=== PATIENT | male | born 1995 | race African-American/Black ===

== ENCOUNTER 2018-05-21 12:57 | Emergency (ER) | payer SELFPAY ==
[~2018-05-21] VITALS: Ht 172.7 cm; Wt 61.2 kg
[2018-05-21 13:20] VITALS: BP 126/71
[2018-05-21] MEDS ORDERED: LIDOCAINE WITH 8.4% SOD BICARB 3 ML DISP.SYRIN. INJ ONE (13:30)
[2018-05-21] MEDS ORDERED: DIPHTH,PERTUSS(ACELL),TET TOX 0.5 ML DISP.SYRIN. VAX IM ONE (13:30)
--- NOTE | 2018-05-21 13:38 | PHYS DOC ---
Past Medical History Past Medical History: No Pertinent History Past Surgical History: No Surgical History Alcohol Use: Occasionally Drug Use: None Adult General Chief Complaint Chief Complaint: LACERATION/AVULSION HPI HPI Patient is a 23 year old male presents to the ED complaining of finger laceration x 2 hours ago. States that he was carrying a piece of glass and it broke. Describes the pain as sharp. Rates the pain as 3 out of 10. States he cut his right fourth finger. Denies decreased range of motion, headache, paresthesias, fever, nausea/vomiting or dizziness. Review of Systems Review of Systems Constitutional: Denies fever or chills [] Respiratory: Denies cough or shortness of breath [] Cardiovascular: No additional information not addressed in HPI [] GI: Denies abdominal pain, nausea, vomiting, bloody stools or diarrhea [] : Denies dysuria or hematuria [] Musculoskeletal: Complains of finger laceration. Denies back pain or joint pain [] Integument: Denies rash or skin lesions [] Neurologic: Denies headache, focal weakness or sensory changes [] All other systems were reviewed and found to be within normal limits, except as documented in this note. Current Medications Current Medications Current Medications Medications (Trade) Dose Ordered Sig/Gabby Start Time Stop Time Status Last Admin Dose Admin Diphtheria/ Tetanus/Acell Pertussis (Boostrix) 0.5 ml ONCE ONCE 05/21/18 13:30 05/21/18 13:31 DC 05/21/18 13:29 0.5 ML Lidocaine/Sodium Bicarbonate (Buffered Lidocaine 1%) 3 ml 1X ONCE 05/21/18 13:30 05/21/18 13:31 DC 05/21/18 13:28 3 ML Allergies Allergies Allergies Coded Allergies Type Severity Reaction Last Updated Verified No Known Drug Allergies 05/21/18 No Physical Exam Physical Exam Constitutional: Well developed, well nourished, no acute distress, non-toxic appearance. [] HENT: Normocephalic, atraumatic Neck: Normal range of motion, no tenderness, supple, no stridor. [] Skin: Warm, dry, no erythema, no rash. [] Back: No tenderness, no CVA tenderness. [] Extremities: 1 cm right 4th finger lateral laceration. No tendon laceration. No bony tenderness, no cyanosis, no clubbing, ROM intact, no edema. [] Neurologic: Alert and oriented X 3, normal motor function, normal sensory function, no focal deficits noted. [] Psychologic: Affect normal, judgement normal, mood normal. [] Current Patient Data Vital Signs Vital Signs Date Time Temp Pulse Resp B/P (MAP) Pulse Ox O2 Delivery O2 Flow Rate FiO2 05/21/18 13:20 99.1 67 16 126/71 (89) 100 Room Air 99.1 EKG EKG [] Radiology/Procedures Radiology/Procedures [] Course & Med Decision Making Course & Med Decision Making Pertinent Labs and Imaging studies reviewed. (See chart for details) []No bony tenderness. No x-ray warranted. Laceration repaired. No complications. Discussed symptomatic treatment and wound care. Tetanus updated. Discussed follow-up for wound reevaluation in 3 days. Provided contact information/education. Discussed reasons to return to the ED. Patient understands and agrees with plan. Dragon Disclaimer Dragon Disclaimer This electronic medical record was generated, in whole or in part, using a voice recognition dictation system. Departure Departure Impression: Primary Impression: Finger laceration Disposition: 01 HOME, SELF-CARE Condition: IMPROVED Referrals: NO PCP (PCP) KOLE TORO MD Patient Instructions: Fingertip Laceration Laceration/Wound Repair Laceration/Wound Repair : Wound Location: upper extremity Wound's Depth, Shape: superficial Wound Length (cm): 1 Wound Explored: clean Irrigated w/ Saline (ccs): 500 Betadine Prep?: Yes Anesthesia: 1% Lidocaine Volume Anesthetic (ccs): 3 Wound Debrided: minimal Wound Repaired With: sutures Suture Size/Type: 4:0, nylon Number of Sutures: 3 Progress Well tolerated. No complications. BOOKER ARTHUR May 21, 2018 13:38
== END 2018-05-21 14:05 | disposition home or self-care (01) ==
LOC: ER 12:57
DX: S61.214A Laceration without foreign body of right ring finger without damage to nail, initial encounter (principal); W25.XXXA Contact with sharp glass, initial encounter; Y93.89 Activity, other specified; Y92.89 Other specified places as the place of occurrence of the external cause; Y99.8 Other external cause status
CPT/HCPCS: 12001; 90471; 90715; 99283

== ENCOUNTER 2018-05-26 15:05 | Emergency (ER) | payer SELFPAY ==
[~2018-05-26] VITALS: Ht 172.7 cm; Wt 61.2 kg
--- NOTE | 2018-05-26 15:50 | PHYS DOC ---
Past Medical History Past Medical History: No Pertinent History Past Surgical History: No Surgical History Alcohol Use: Occasionally Drug Use: None Adult General Chief Complaint Chief Complaint: SUTURE/STAPLE REMOVAL [facility] Patient is a 23 year old male who presents with a need for suture removal. The patient states that he just had the sutures placed 4 days ago. He states that the finger is boom tender but has been healing well. Review of Systems Review of Systems Constitutional: Denies fever or chills [] Respiratory: Denies cough or shortness of breath [] Cardiovascular: No additional information not addressed in HPI [] Musculoskeletal: Denies back pain or joint pain [] Integument: See history of present illness Neurologic: Denies headache, focal weakness or sensory changes [] Endocrine: Denies polyuria or polydipsia [] All other systems were reviewed and found to be within normal limits, except as documented in this note. Allergies Allergies Allergies Coded Allergies Type Severity Reaction Last Updated Verified No Known Drug Allergies 05/21/18 No Physical Exam Physical Exam Constitutional: Well developed, well nourished, no acute distress, non-toxic appearance. [] Cardiovascular:Heart rate regular rhythm, no murmur [] Lungs & Thorax: Bilateral breath sounds clear to auscultation [] Abdomen: Bowel sounds normal, soft, no tenderness, no masses, no pulsatile masses. [] Skin: The patient has sutures intact and a healing wound to his right middle finger that are not ready to be removed. EKG EKG [] Radiology/Procedures Radiology/Procedures [] Course & Med Decision Making Course & Med Decision Making Pertinent Labs and Imaging studies reviewed. (See chart for details) []I explained to the patient that sutures need to stay in place for approximately 7-10 days to allow time for the tissue to heal. If I removed the sutures today it would simply allow the laceration to break open. The patient is in agreement to come back in 4-5 days for suture removal. Dragon Disclaimer Dragon Disclaimer This electronic medical record was generated, in whole or in part, using a voice recognition dictation system. Departure Departure Impression: Primary Impression: Visit for suture removal Disposition: 01 HOME, SELF-CARE Condition: STABLE Referrals: NO PCP (PCP) Patient Instructions: Sutured Wound Care Additional Instructions: Return for suture removal in 4-5 days. Your sutures are not ready to be removed from the wound yet. MARIO TELLEZ APRN May 26, 2018 15:50
[2018-05-26 16:00] VITALS: BP 120/64
== END 2018-05-26 16:13 | disposition home or self-care (01) ==
LOC: ER 15:05
DX: S61.212D Laceration without foreign body of right middle finger without damage to nail, subsequent encounter (principal); X58.XXXD Exposure to other specified factors, subsequent encounter
CPT/HCPCS: 99281

== ENCOUNTER 2018-06-01 13:04 | Emergency (ER) | payer SELFPAY ==
[~2018-06-01] VITALS: Ht 172.7 cm; Wt 61.2 kg
--- NOTE | 2018-06-01 13:30 | PHYS DOC ---
Past Medical History Past Medical History: No Pertinent History Past Surgical History: No Surgical History Alcohol Use: Occasionally Drug Use: None Adult General Chief Complaint Chief Complaint: SUTURE/STAPLE REMOVAL [facility] Patient is a 23 year old male who presents with a need for suture removal. The patient has 4 intact sutures to a well-healed laceration. He states he has had no problems with the injury. Review of Systems Review of Systems Constitutional: Denies fever or chills [] Respiratory: Denies cough or shortness of breath [] Cardiovascular: No additional information not addressed in HPI [] GI: Denies abdominal pain, nausea, vomiting, bloody stools or diarrhea [] : Denies dysuria or hematuria [] Musculoskeletal: Denies back pain or joint pain [] Integument: See history of present illness Neurologic: Denies headache, focal weakness or sensory changes [] Endocrine: Denies polyuria or polydipsia [] All other systems were reviewed and found to be within normal limits, except as documented in this note. Allergies Allergies Allergies Coded Allergies Type Severity Reaction Last Updated Verified No Known Drug Allergies 05/21/18 No Physical Exam Physical Exam Constitutional: Well developed, well nourished, no acute distress, non-toxic appearance. [] Neck: Normal range of motion, no tenderness, supple, no stridor. [] Cardiovascular:Heart rate regular rhythm, no murmur [] Lungs & Thorax: Bilateral breath sounds clear to auscultation [] Abdomen: Bowel sounds normal, soft, no tenderness, no masses, no pulsatile masses. [] Skin: 4 sutures were removed from a well-healed laceration to the right middle finger with no complications. Neurologic: Alert and oriented X 3, normal motor function, normal sensory function, no focal deficits noted. [] Psychologic: Affect normal, judgement normal, mood normal. [] Current Patient Data Vital Signs Vital Signs Date Time Temp Pulse Resp B/P (MAP) Pulse Ox O2 Delivery O2 Flow Rate FiO2 06/01/18 13:33 98.1 88 16 113/63 (80) 99 Room Air 98.1 EKG EKG [] Radiology/Procedures Radiology/Procedures [] Course & Med Decision Making Course & Med Decision Making Pertinent Labs and Imaging studies reviewed. (See chart for details) [] Dragon Disclaimer Dragon Disclaimer This electronic medical record was generated, in whole or in part, using a voice recognition dictation system. Departure Departure Impression: Primary Impression: Visit for suture removal Disposition: HOME, SELF-CARE Condition: STABLE Referrals: NO PCP (PCP) Patient Instructions: Suture Removal Additional Instructions: Keep the skin clean and dry. Do not scrub the wound until it is fully healed. You may use ibuprofen or Tylenol if needed for pain. MARIO TELLEZ APRN Jun 01, 2018 13:30
[2018-06-01 13:33] VITALS: BP 113/63
== END 2018-06-01 13:57 | disposition home or self-care (01) ==
LOC: ER 13:04
DX: S61.212D Laceration without foreign body of right middle finger without damage to nail, subsequent encounter (principal); X58.XXXD Exposure to other specified factors, subsequent encounter
CPT/HCPCS: 99281

== ENCOUNTER 2019-09-12 16:23 | Emergency (ER) | payer SELFPAY ==
[~2019-09-12] VITALS: Ht 172.7 cm; Wt 59.1 kg
[2019-09-12 17:35] VITALS: BP 132/57
[2019-09-12] MEDS ORDERED: HYDROcodone/APAP 5/325MG 1 TAB TABLET PO ONE (18:45)
[2019-09-12] MEDS ORDERED: LIDOCAINE WITH 8.4% SOD BICARB 3 ML DISP.SYRIN. INJ ONE (18:45)
[2019-09-12] MEDS ORDERED: HYDR-3164 PO (19:05)
[2019-09-12] MEDS ORDERED: SULF1TAB24 PO (19:05)
--- NOTE | 2019-09-12 19:05 | PHYS DOC ---
Past Medical History Past Medical History: No Pertinent History (MIGUEL MOTA APRN) Past Surgical History: No Surgical History (MIGUEL MOTA APRN) Alcohol Use: Occasionally Drug Use: None (MIGUEL MOTA APRN) Attending Signature I have participated in the care of this patient and I have reviewed and agree with all pertinent clinical information above including history, exam, and recommendations. (SUZANNE HOLDER MD) Adult General Chief Complaint Chief Complaint: ABSCESS HPI HPI Patient is a 24 year old male who presents to the ED today with left buttock abscess that began a week ago. Patient reports previous history of abscess in the same region. Denies any fever. (MIGUEL MOTA APRN) Review of Systems Review of Systems Constitutional: Denies fever or chills [] Musculoskeletal: Denies back pain or joint pain [] Integument: Reports left buttock abscess Neurologic: Denies headache, focal weakness or sensory changes [] All other systems were reviewed and found to be within normal limits, except as documented in this note. (MIGUEL MOTA APRN) Current Medications Current Medications Current Medications Medications (Trade) Dose Ordered Sig/Gabby Start Time Stop Time Status Last Admin Dose Admin Acetaminophen/ Hydrocodone Bitart (Lortab 5/325) 2 tab 1X ONCE 09/12/19 18:45 09/12/19 18:46 DC 09/12/19 18:39 2 TAB Lidocaine HCl (Buffered Lidocaine 1%) 3 ml 1X ONCE 09/12/19 18:45 09/12/19 18:46 DC 09/12/19 18:39 3 ML (SUZANNE HOLDER MD) Allergies Allergies Allergies Coded Allergies Type Severity Reaction Last Updated Verified No Known Drug Allergies 05/21/18 No (SUZANNE HOLDER MD) Physical Exam Physical Exam Constitutional: Well developed, well nourished, no acute distress, non-toxic appearance. [] Skin: Warm, dry, left buttock with an indurated area approximately 3 x 3 cm with mild erythema and fluctuance. There is some old scar noted over the area as well. Back: No tenderness, no CVA tenderness. [] Extremities: No tenderness, no cyanosis, no clubbing, ROM intact, no edema. [] Neurologic: Alert and oriented X 3, normal motor function, normal sensory function, no focal deficits noted. [] Psychologic: Affect normal, judgement normal, mood normal. [] (MIGUEL MOTA APRN) Current Patient Data Vital Signs Vital Signs Date Time Temp Pulse Resp B/P (MAP) Pulse Ox O2 Delivery O2 Flow Rate FiO2 09/12/19 18:39 Room Air 09/12/19 17:35 99.2 92 12 132/57 (82) 100 99.2 (SUZANNE HOLDER MD) EKG EKG [] (MIGUEL MTOA APRN) Radiology/Procedures Radiology/Procedures Indication: abscess left buttock Procedure: The patient was positioned appropriately. Local anesthesia was 1% buffered lidocaine. An incision was then made over the apex of the lesion with an 11 and moderate amount of bloody purulent material was expressed. The drainage cavity was irrigated and packed with sterile gauze. The patients tetanus status updated as needed. The patient tolerated the procedure well. Complications: none.[] (MIGUEL MOTA APRN) Course & Med Decision Making Course & Med Decision Making Pertinent Labs and Imaging studies reviewed. (See chart for details) This is a 24-year-old male patient presenting to the ED today with an abscess on the left buttock that was drained by me as noted in procedures. Tetanus is up-to-date. Wound care instructions and return precautions provided. (MIGUEL MOTA APRN) Dragon Disclaimer Dragon Disclaimer This electronic medical record was generated, in whole or in part, using a voice recognition dictation system. (MIGUEL MOTA APRN) Departure Departure Impression: Primary Impression: Left buttock abscess Disposition: 01 HOME, SELF-CARE Condition: STABLE Referrals: NO PCP (PCP) PAVEL GUZMAN MD follow up in 2 weeks Patient Instructions: Abscess, Care After Additional Instructions: We drained abscess on your left buttock and applied packing. Keep the area clean and dry. You can return to the ED in 2 days and we will remove the packing you. Complete the prescribed antibiotics. Scripts Hydrocodone/Apap 5-325 (NORCO 5-325 TABLET) 1 Each Tablet 1 TAB PO Q6HRS, #12 TAB Prov: MIGUEL MOTA APRN 09/12/19 Sulfamethoxazole/Trimethoprim (BACTRIM DS TABLET) 1 Each Tablet 1 TAB PO BID for 10 Days, #20 TAB 0 Refills Prov: MIGUEL MOTA APRN 09/12/19 MIGUEL MOTA APRN Sep 12, 2019 19:05 SUZANNE HOLDER MD Sep 13, 2019 03:43
== END 2019-09-12 19:07 | disposition home or self-care (01) ==
LOC: ER 16:23
DX: L02.31 Cutaneous abscess of buttock (principal)
CPT/HCPCS: 10060; 99283